=== PATIENT | female | born 1990 | race Two or more races ===

== ENCOUNTER → 2016-10-09 | Outpatient (CLI) | payer BC ==
--- NOTE | 2016-10-09 13:27 | MRI ---
MRI SPINE CERVICAL WITHOUT AND WITH CONTRAST CLINICAL HISTORY: 25-year-old female with multiple sclerosis. COMPARISON: MR brain this date. Technique: Multiplanar, multisequence MRI images of the cervical spine were obtained prior to and f ollowing the uneventful intravenous administration of contrast. FINDINGS: Straightening of the cervical lordosis as imaged. Alignment is maintained. The craniocervi chintan junction is normal. Vertebral body and disc space height are maintained. Vertebral marrow and in tervertebral disc space signal are normal. Cord signal is normal. T2 STIR hyperintense lesion at t he right pontomedullary junction that does not display post-contrast enhancement. There is no eviden ce of abnormal enhancement within the cervical spine. No significant central canal or neural foraminal stenosis. IMPRESSION: 1. No evidence of demyelinating lesion within the cervical spine, which is normal. 2. Single demyelinating lesion at the right pontomedullary junction without post-contrast enhancemen t to suggest active demyelination, consistent with history. Reported By:
--- NOTE | 2016-10-09 14:09 | MRI ---
STUDY: MRI OF THE BRAIN WITHOUT AND WITH GADOLINIUM HISTORY: Multiple sclerosis. The Technique: Multiplanar multi-sequence MRI of the brain was obtained utilizing standard departmental protocol. Sagittal and axial T1, axial T2, FLAIR, diffusion (DWI/ADC) images through the brain were performed. 20 if cc of Omniscan was administered intravenously without reported complication following acquisit ion of informed written consent. Post gadolinium axial and coronal T1 weighted images were also perf ormed and reviewed. Comparison: None. Findings: Pre gadolinium brain: The sulci, cisterns and ventricles are age appropriate. There are multiple fo ci of T2 prolongation in the periventricular and subcortical white matter of both hemispheres. Foci of T2 prolongation in the corpus callosum as well as the brachium pontis are identified. The nonspec ific, lesion morphology, distribution and orientation favor a diagnosis of demyelinating disease. There is no evidence of acute territorial infarction, hemorrhage, mass, mass effect, or midline shif t. There are no abnormal intra-axial or extra-axial fluid collections. The major intracranial vascu lar flow voids appear intact. The left vertebral artery is dominant. Post gadolinium brain: Following the uneventful administration of intravenous gadolinium, there is n o evidence of abnormal parenchymal or leptomeningeal enhancement. IMPRESSION: 1. No evidence of acute intracranial abnormality. No abnormal foci of enhancement are identified to suggest active or recent demyelination. 2. White matter change in both hemispheres as described, consistent with the stated history of mult iple sclerosis. Reported By:
== END ==
LOC: RAD 10:04
PROVIDERS: ATTEND Psychiatry & Neurology Neurology
DX: G35 Multiple sclerosis (principal)
CPT/HCPCS: 70553; 72156